=== PATIENT | female | born 1970 | race Caucasian/White ===

== ENCOUNTER 2021-08-06 18:30 | Inpatient (IN) | payer OTHER, SELFPAY ==
--- NOTE | ~2021-08-06 | XR_ITS ---
EXAMINATION: XR CHEST CLINICAL INFORMATION: Chest pain and shortness of breath COMPARISON: 03/10/2017 TECHNIQUE: Frontal view of the chest was obtained. FINDINGS: The lungs are well expanded. There is no focal consolidation, edema, or effusion. No pneumothorax. The cardiomediastinal silhouette is within normal limits. No acute osseous abnormality. XR/XR chest 1V IMPRESSION: Clear lungs.
--- NOTE | ~2021-08-06 | XR_ITS ---
EXAMINATION: XR FOREARM, RIGHT CLINICAL INFORMATION: Pain. Swelling. Injury. COMPARISON: None TECHNIQUE: AP and lateral views of the right forearm were obtained. FINDINGS: The bones and soft tissues are normal. No fracture. Imaged portions of the elbow and wrist are unremarkable. XR/XR forearm RT 2V IMPRESSION: Normal right forearm.
--- NOTE | ~2021-08-06 | XR_ITS ---
EXAMINATION: XR SHOULDER, RIGHT CLINICAL INFORMATION: Swelling. Injury. COMPARISON: None TECHNIQUE: Three views of the right shoulder. FINDINGS: The bones and soft tissues are normal. No fracture. Glenohumeral and acromioclavicular alignment is anatomic with normal joint space. No abnormal soft tissue calcifications. XR/XR shoulder RT min 2V IMPRESSION: Normal right shoulder.
[2021-08-06 18:32] VITALS: BP 108/85; PULSE 124; RESP 32; TEMP 37.2; O2SAT 97; BMI 32.3
--- NOTE | 2021-08-06 18:53 | ECG_ITS ---
Test Reason : sob Blood Pressure : / mmHG Vent. Rate : 104 BPM Atrial Rate : 104 BPM P-R Int : 174 ms QRS Dur : 084 ms QT Int : 346 ms P-R-T Axes : 035 022 033 degrees QTc Int : 454 ms Sinus tachycardia Otherwise normal ECG No previous ECGs available Referred By: Generic ED Physician Electronically Signed By:Nikko Smith
[2021-08-06 19:04] LABS: MANUAL DIFF FLAG NO
[2021-08-06 19:06] LABS: Basophils Absolute Auto 0.1 X10*3/uL (0.0-0.2); Basophils Percent Auto 0.9 % (0-2); Hematocrit 40.1 % (37.0-47.0); Hemoglobin 12.9 g/dl (12.0-16.0); Imm Gran Abs Auto 0.06 X10*3/uL (0.00-0.03); Imm Gran Pct Auto 0.5 % (0.0-0.4); Lymphocytes Absolute Auto 4.4 X10*3/uL (1.2-4.9); Lymphocytes Percent Auto 34.3 % (20-40); Mean Corpuscular HGB Conc 32.2 g/dl (31.0-35.0); Mean Corpuscular Hemoglobin 26.5 pg (27.0-33.0); Mean Corpuscular Volume 82.3 fL (80.0-98.0); Mean Platelet Volume 9.7 fL (9.4-12.3); Monocytes Percent Auto 7.8 % (2-11); Neutrophils Absolute Auto 7.3 x10*3/uL (2.0-8.3); Neutrophils Percent Auto 56.5 % (45-73); Platelet Count 466 X10*3/uL (160-400); Red Blood Count 4.87 X10*6/uL (4.20-5.50); Red Cell Distribution Width 15.4 % (11.0-16.0); White Blood Count 12.9 X10*3/uL (4.8-10.8)
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
[2021-08-06] MEDS: methylPREDNISolone Sod Succ 125 MG/2 ML VIAL IVPUSH (19:13)
[2021-08-06] MEDS: Magnesium Sulfate/H2O 2 GM/50 ML PIGGYBACK IV (19:13)
[2021-08-06 19:20] VITALS: PULSE 102; RESP 17; O2SAT 97
[2021-08-06] MEDS: Albuterol Sulfate (0.083%) 2.5 MG/3 ML VIAL.NEB 10 MG INHALE (19:20)
[2021-08-06 19:21] LABS: Anion Gap 15 (12-20); Blood Urea Nitrogen 10 mg/dL (9-16); Calcium 9.4 mg/dL (8.4-10.2); Carbon Dioxide 26 mmol/L (22-29); Chloride 99 mmol/L (96-108); Creatinine Clr Calc Pharmacy 90.8; Estimated Glomerular Filt Rate > 60; Glucose Random 83 mg/dL (60-115); Potassium 4.4 mmol/L (3.3-5.1); Sodium 136 mmol/L (135-145)
--- NOTE | 2021-08-06 19:21 | PC.NURSE ---
patient awake and alert. skin pink, warm, moist. resp even and labored. speaking in full, clear sentences. dry cough, tight lung sounds w/ exp wheezes. IV established and medicated as ordered. ST via monitor. RT at bedside for hour long tx.
[2021-08-06 19:26] LABS: B Type Natriuretic Peptide < 10 pg/mL (<100); Troponin-I High Sensitivity < 3.5 ng/L (<3.5-17.0)
[2021-08-06] MEDS: 0.9 % Sodium Chloride 1,000 ML 999 ML IV (19:32)
[2021-08-06] MEDS: Ketorolac Tromethamine 30 MG/ML VIAL IVPUSH (19:46)
[2021-08-06 19:53] LABS: COVID-19 Test Negative (Negative); IDNOW Serial# 55D5AD1C; Influenza A Negative (Negative); Influenza B2 Negative (Negative)
[2021-08-06 19:58] LABS: Alanine Aminotransferase 53 U/L (0-31); Albumin Level 4.2 g/dL (3.5-5.0); Alkaline Phosphatase 95 U/L (39-117); Aspartate Amino Transferase 53 U/L (5-31); Bilirubin Direct < 0.2 mg/dL (0.0-0.5); Bilirubin Total 0.2 mg/dL (0.0-1.0); Total Protein 8.1 g/dL (6.5-8.0)
[2021-08-06 20:52] LABS: Appearance Urine CLEAR; Color Urine STRAW; Glucose Urine UA NEG (NEG); Leukocyte Esterase Urine NEG (NEG); Nitrite Urine NEG (NEG); Specific Gravity - Urine <= 1.005 (1.005-1.025); UACC Culture Trigger NO; Urine Blood TRACE (NEG); Urine Ketones NEG (NEG); Urine Protein NEG (NEG-TRACE)
[2021-08-06 21:00] LABS: Bacteria Urine 1+ /LPF; Squamous Epithelial Cell Urine 1+ /LPF
[2021-08-06 21:01] LABS: RBC Urine 0-2 /HPF (0)
[2021-08-06 21:02] VITALS: O2SAT 95
[2021-08-06 21:06] VITALS: BP 126/77; PULSE 103; RESP 18; O2SAT 96
--- NOTE | 2021-08-06 21:09 | PHA.MEDREC ---
Pharmacy Consult ? Medication Reconciliation Pharmacy has completed the medication reconciliation.
[2021-08-06] MEDS: Albuterol/Iprat 2.5/0.5MG 3 ML AMPUL.NEB INHALE (21:10)
[2021-08-06 21:11] VITALS: PULSE 103; RESP 23; O2SAT 95
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
[2021-08-06 22:00] LABS: Prothrombin Time 11.3 SEC (9.9-13.0)
[2021-08-06 22:02] LABS: D Dimer High Sensitivity 162 NG/ML
[2021-08-06] MEDS: Montelukast Sodium 10 MG TABLET PO (22:41)
[2021-08-06] MEDS: Enoxaparin Sodium 40 MG/0.4 ML SYRINGE SUBCUT (22:44)
[2021-08-06] MEDS: 0.9 % Sodium Chloride 1,000 ML 75 ML IVCONT (23:01)
[2021-08-07] MEDS: methylPREDNISolone Sod Succ 40 MG/ML VIAL IVPUSH (01:01)
[2021-08-07] MEDS: Morphine Sulfate 4 MG/ML CARTRIDGE 1 MG IVPUSH (01:01)
[2021-08-07 05:51] VITALS: BP 119/98; PULSE 93; RESP 17; O2SAT 96
[2021-08-07 07:05] LABS: MANUAL DIFF FLAG NO
[2021-08-07 07:10] LABS: Basophils Percent Auto 0.3 % (0-2); Hematocrit 39.2 % (37.0-47.0); Hemoglobin 12.4 g/dl (12.0-16.0); Imm Gran Abs Auto 0.11 X10*3/uL (0.00-0.03); Imm Gran Pct Auto 0.9 % (0.0-0.4); Lymphocytes Absolute Auto 1.6 X10*3/uL (1.2-4.9); Lymphocytes Percent Auto 13.8 % (20-40); Mean Corpuscular HGB Conc 31.6 g/dl (31.0-35.0); Mean Corpuscular Hemoglobin 26.4 pg (27.0-33.0); Mean Corpuscular Volume 83.6 fL (80.0-98.0); Mean Platelet Volume 9.8 fL (9.4-12.3); Monocytes Absolute Auto 0.1 X10*3/uL (0.1-1.2); Monocytes Percent Auto 0.9 % (2-11); Neutrophils Absolute Auto 9.9 x10*3/uL (2.0-8.3); Neutrophils Percent Auto 84.1 % (45-73); Platelet Count 450 X10*3/uL (160-400); Red Blood Count 4.69 X10*6/uL (4.20-5.50); Red Cell Distribution Width 15.7 % (11.0-16.0); White Blood Count 11.8 X10*3/uL (4.8-10.8)
[2021-08-07 07:25] LABS: Anion Gap 12 (12-20); Blood Urea Nitrogen 15 mg/dL (9-16); Calcium 9.3 mg/dL (8.4-10.2); Carbon Dioxide 22 mmol/L (22-29); Chloride 106 mmol/L (96-108); Creatinine Clr Calc Pharmacy 100.2; Estimated Glomerular Filt Rate > 60; Glucose Random 165 mg/dL (60-115); Potassium 4.8 mmol/L (3.3-5.1); Sodium 135 mmol/L (135-145)
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
[2021-08-07 08:33] VITALS: BP 182/103; PULSE 83; RESP 16; TEMP 36.6
== END 2021-08-07 08:49 | disposition home or self-care (01) | DRG 141 ==
LOC: HO.ED 20:39 → HO.EDOVER 21:19
PROVIDERS: Nurse Practitioner Family; Admitting Provider Hospitalist; Emergency Provider Emergency Medicine; PCP Physician Assistant; Visit Provider Internal Medicine
DX: J45.901 Unspecified asthma with (acute) exacerbation (principal); R55 Syncope and collapse; Z79.52 Long term (current) use of systemic steroids; Z88.6 Allergy status to analgesic agent; Z91.013 Allergy to seafood; Z79.899 Other long term (current) drug therapy
CPT/HCPCS: 36415; 71045; 73030; 73090; 80048; 80076; 81001; 83880; 84484; 85025; 85379; 85610; 87502; 87635; 93005; 94640; 94644; 96365; 96366; 96375; 99219; 99284; 99285; J1650; J1885; J2270; J2920; J2930; J3475

== ENCOUNTER 2022-02-18 17:00 | Outpatient (RCR) | payer OTHER, SELFPAY | END 2022-04-06 15:21 | disposition home or self-care (01) | LOC: HO.PTCHIC 17:00 | PROVIDERS: PCP Physician Assistant; Visit Provider Physician Assistant | DX: M25.562 Pain in left knee (principal) | CPT/HCPCS: 97014; 97110; 97140; 97161 ==

== ENCOUNTER 2022-09-13 14:37 | Emergency (ER) | payer OTHER, SELFPAY ==
[2022-09-13 14:51] VITALS: BP 170/100; PULSE 115; O2SAT 97; BMI 25.8
[2022-09-13 15:00] VITALS: BP 132/74; PULSE 99; RESP 22; TEMP 37; O2SAT 94
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
[2022-09-13 17:57] VITALS: BP 107/58; PULSE 89; RESP 20; TEMP 36.9; O2SAT 97
== END 2022-09-13 18:21 | disposition home or self-care (01) ==
PROVIDERS: Emergency Provider Emergency Medicine Emergency Medical Services; PCP Internal Medicine
DX: S06.0X9A Concussion with loss of consciousness of unspecified duration, initial encounter (principal); S80.12XA Contusion of left lower leg, initial encounter; S00.83XA Contusion of other part of head, initial encounter; S20.212A Contusion of left front wall of thorax, initial encounter; V43.52XA Car driver injured in collision with other type car in traffic accident, initial encounter; Y93.89 Activity, other specified; Y92.414 Local residential or business street as the place of occurrence of the external cause; Y99.9 Unspecified external cause status
CPT/HCPCS: 36415; 70450; 71250; 72125; 73590; 80053; 83690; 84484; 85025; 85610; 85730; 93005; 96374; 96375; 96376; 99284; 99285; J2270; J2405

== ENCOUNTER 2022-09-28 12:24 | Outpatient (AMB) | payer OTHER, SELFPAY ==
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
[2022-09-28 13:23] VITALS: BP 120/84; PULSE 90; O2SAT 97
== END 2022-09-28 14:05 | disposition home or self-care (01) ==
PROVIDERS: PCP Internal Medicine; Visit Provider Physician Assistant
DX: M54.50 Low back pain, unspecified (principal)
CPT/HCPCS: 96372; 99214; J1885

== ENCOUNTER 2022-10-07 12:55 | Outpatient (AMB) | payer OTHER, SELFPAY ==
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
[2022-10-07 13:20] VITALS: BMI 25.8
== END 2022-10-07 14:40 | disposition home or self-care (01) ==
PROVIDERS: PCP Internal Medicine; Visit Provider Physician Assistant
DX: S82.142A Displaced bicondylar fracture of left tibia, initial encounter for closed fracture (principal)
CPT/HCPCS: 99204

== ENCOUNTER → 2022-10-07 12:55 | Outpatient (BNVA) | payer OTHER, SELFPAY | PROVIDERS: PCP Internal Medicine; Visit Provider Physician Assistant | DX: S82.142A Displaced bicondylar fracture of left tibia, initial encounter for closed fracture (principal); V43.52XA Car driver injured in collision with other type car in traffic accident, initial encounter; Y93.9 Activity, unspecified; Y92.9 Unspecified place or not applicable; Y99.9 Unspecified external cause status | CPT/HCPCS: 99202 ==

== ENCOUNTER 2022-10-27 07:43 | Outpatient (REF) | payer OTHER, SELFPAY ==
--- NOTE | ~2022-10-27 | CT_ITS ---
EXAMINATION: CT KNEE WITHOUT CONTRAST, LEFT CLINICAL INFORMATION: Tibial fracture. COMPARISON: Left tibia and fibular radiographs dated 09/13/2022. TECHNIQUE: Contiguous axial CT images of the left knee were obtained without contrast. Multiplanar reformats were provided and reviewed. This CT examination was performed using dose optimization techniques as appropriate, variously including the following: *Automated exposure control *Adjustment of mA and/or kV according to patient size (this includes techniques or standardized protocols for targeted exams where dose is matched to indication/reason for exam; i.e. extremities or head) *Use of iterative reconstruction technique. DOSE: 98 mGy-cm FINDINGS: Within the medial tibial plateau, there is a geographic area of central lucency with peripheral sclerosis measuring up to 2.3 x 3.9 x 4.9 cm (AP x ML x CC). This extends the articular surface. Findings could represent a chronic bone infarct versus large subchondral cyst. Along the articular surface component of the lesion, there is a depressed cortical fracture which measures 2.4 x 1.7 cm (AP x ML) with cortical depression measuring up to 0.3 cm. Medial compartment joint space narrowing. Medial and lateral compartment marginal osteophytes. Normal patellofemoral alignment. No significant joint effusion. No abnormal soft tissue mass or fluid collection. The visualized muscles and tendons are grossly intact. CT/CT knee LT wo IV con IMPRESSION: 1. Large geographic area of central lucency with peripheral sclerosis within the medial tibial plateau extending to the articular surface. Findings could represent a chronic bone infarct versus large subchondral cyst. There is a depressed cortical fracture along the articular surface component which measures 2.4 x 1.7 cm with cortical depression measuring up to 0.3 cm. 2. Mild medial and lateral compartment osteoarthritis.
== END 2022-10-27 07:44 | disposition home or self-care (01) ==
LOC: HO.CT 07:43
PROVIDERS: Visit Provider Physician Assistant
DX: S82.142A Displaced bicondylar fracture of left tibia, initial encounter for closed fracture (principal)
CPT/HCPCS: 73700

== ENCOUNTER 2022-11-18 14:53 | Outpatient (AMB) | payer OTHER, SELFPAY ==
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
== END 2022-11-18 15:43 | disposition home or self-care (01) ==
PROVIDERS: PCP Internal Medicine; Visit Provider Orthopaedic Surgery
DX: S82.142A Displaced bicondylar fracture of left tibia, initial encounter for closed fracture (principal); S80.12XA Contusion of left lower leg, initial encounter; M17.0 Bilateral primary osteoarthritis of knee; Z04.3 Encounter for examination and observation following other accident
CPT/HCPCS: 99214

== ENCOUNTER → 2022-11-18 14:53 | Outpatient (BNVA) | payer OTHER, SELFPAY | PROVIDERS: PCP Internal Medicine; Visit Provider Orthopaedic Surgery | DX: S82.142D Displaced bicondylar fracture of left tibia, subsequent encounter for closed fracture with routine healing (principal); S80.12XD Contusion of left lower leg, subsequent encounter; M17.12 Unilateral primary osteoarthritis, left knee; M17.11 Unilateral primary osteoarthritis, right knee | CPT/HCPCS: 99212 ==

== ENCOUNTER 2022-12-06 12:07 | Outpatient (REF) | payer OTHER, SELFPAY ==
--- NOTE | ~2022-12-06 | XR_ITS ---
STUDY: Left knee and standing knee INDICATION: Pain COMPARISON: 10/27/[address] TECHNIQUE: AP standing knee, 2 view left knee FINDINGS: Diffuse patchy demineralization. Moderate right medial knee joint narrowing. Moderate to severe left medial knee joint narrowing. Left patellofemoral joint is maintained. 5.2 cm centrally lucent, peripherally sclerotic tibial plateau process is identified with extension into the medial articular surface. Medial tibial plateau cortical step-off and mild depression identified. No suprapatellar effusion. XR/XR knee standing BI IMPRESSION: Redemonstration peripherally sclerotic, centrally lucent proximal left tibial process with medial tibial plateau depressed fracture. This does not appear significantly changed from 10/27/2022 CT at which time possibility of chronic bone infarct versus subchondral cyst were raised as differential diagnoses. Bilateral knee osteoarthritis.
--- NOTE | ~2022-12-06 | XR_ITS ---
STUDY: Left knee and standing knee INDICATION: Pain COMPARISON: 10/27/[address] TECHNIQUE: AP standing knee, 2 view left knee FINDINGS: Diffuse patchy demineralization. Moderate right medial knee joint narrowing. Moderate to severe left medial knee joint narrowing. Left patellofemoral joint is maintained. 5.2 cm centrally lucent, peripherally sclerotic tibial plateau process is identified with extension into the medial articular surface. Medial tibial plateau cortical step-off and mild depression identified. No suprapatellar effusion. XR/XR knee LT 2V IMPRESSION: Redemonstration peripherally sclerotic, centrally lucent proximal left tibial process with medial tibial plateau depressed fracture. This does not appear significantly changed from 10/27/2022 CT at which time possibility of chronic bone infarct versus subchondral cyst were raised as differential diagnoses. Bilateral knee osteoarthritis.
== END 2022-12-06 12:08 | disposition home or self-care (01) ==
LOC: HO.HOSX 12:07
PROVIDERS: Visit Provider Orthopaedic Surgery
DX: M17.0 Bilateral primary osteoarthritis of knee (principal); S82.142D Displaced bicondylar fracture of left tibia, subsequent encounter for closed fracture with routine healing; V89.2XXD Person injured in unspecified motor-vehicle accident, traffic, subsequent encounter; S80.12XD Contusion of left lower leg, subsequent encounter; Z79.899 Other long term (current) drug therapy
CPT/HCPCS: 73560; 73565; 99212

== ENCOUNTER 2022-12-06 14:51 | Outpatient (AMB) | payer OTHER, SELFPAY ==
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
== END 2022-12-06 15:48 | disposition home or self-care (01) ==
PROVIDERS: PCP Internal Medicine; Visit Provider Orthopaedic Surgery
DX: S82.142A Displaced bicondylar fracture of left tibia, initial encounter for closed fracture (principal); M17.0 Bilateral primary osteoarthritis of knee; S80.12XA Contusion of left lower leg, initial encounter
CPT/HCPCS: 99214

== ENCOUNTER → 2023-01-06 15:11 | Outpatient (BNVA) | payer OTHER, SELFPAY | PROVIDERS: PCP Internal Medicine; Visit Provider Orthopaedic Surgery ==

== ENCOUNTER 2023-01-13 10:48 | Outpatient (AMB) | payer MEDICAID, SELFPAY ==
[2023-01-13 10:56] VITALS: BMI 25.8
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
== END 2023-01-13 11:27 | disposition home or self-care (01) ==
PROVIDERS: PCP Internal Medicine; Visit Provider Physician Assistant
DX: M17.12 Unilateral primary osteoarthritis, left knee (principal); S82.142A Displaced bicondylar fracture of left tibia, initial encounter for closed fracture; S80.12XA Contusion of left lower leg, initial encounter
CPT/HCPCS: 99024

== ENCOUNTER → 2023-01-13 10:48 | Outpatient (BNVA) | payer SELFPAY | PROVIDERS: PCP Internal Medicine; Visit Provider Physician Assistant ==

== ENCOUNTER → 2023-01-25 06:03 | Outpatient (BNV) | payer OTHER, SELFPAY | PROVIDERS: Visit Provider Orthopaedic Surgery | DX: Z47.1 Aftercare following joint replacement surgery (principal); Z96.652 Presence of left artificial knee joint | CPT/HCPCS: 27447; 99024 ==

== ENCOUNTER 2023-01-27 09:59 | Inpatient (IN) | payer OTHER, SELFPAY ==
[2023-01-11 13:24] VITALS: BP 140/78; PULSE 90; RESP 20; O2SAT 97; BMI 33.4
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
--- NOTE | 2023-01-11 14:04 | ECG_ITS ---
Test Reason : preop Blood Pressure : / mmHG Vent. Rate : 086 BPM Atrial Rate : 086 BPM P-R Int : 150 ms QRS Dur : 086 ms QT Int : 378 ms P-R-T Axes : 021 016 036 degrees QTc Int : 452 ms Normal sinus rhythm Normal ECG When compared with ECG of 13-SEP-2022 15:55, Nonspecific T wave abnormality no longer evident in Inferior leads T wave inversion no longer evident in Anterior leads Referred By: Joy Berman Electronically Signed By:LILIAM CARDOZO MD
[2023-01-11 14:47] LABS: MANUAL DIFF FLAG NO
[2023-01-11 14:57] LABS: Basophils Absolute Auto 0.1 X10*3/uL (0.0-0.2); Basophils Percent Auto 0.6 % (0-2); Eosinophils Absolute Auto 0.4 X10*3/uL (0.0-0.4); Eosinophils Percent Auto 3.4 % (0-4); Hematocrit 42.6 % (37.0-47.0); Hemoglobin 13.7 g/dl (12.0-16.0); Imm Gran Abs Auto 0.06 X10*3/uL (0.00-0.03); Imm Gran Pct Auto 0.5 % (0.0-0.4); Lymphocytes Absolute Auto 2.9 X10*3/uL (1.2-4.9); Lymphocytes Percent Auto 23.2 % (20-40); Mean Corpuscular HGB Conc 32.2 g/dl (31.0-35.0); Mean Corpuscular Hemoglobin 27.8 pg (27.0-33.0); Mean Corpuscular Volume 86.4 fL (80.0-98.0); Mean Platelet Volume 9.9 fL (9.4-12.3); Monocytes Absolute Auto 0.7 X10*3/uL (0.1-1.2); Monocytes Percent Auto 5.8 % (2-11); Neutrophils Absolute Auto 8.4 x10*3/uL (2.0-8.3); Neutrophils Percent Auto 66.5 % (45-73); Platelet Count 360 X10*3/uL (160-400); Red Blood Count 4.93 X10*6/uL (4.20-5.50); Red Cell Distribution Width 13.9 % (11.0-16.0); White Blood Count 12.6 X10*3/uL (4.8-10.8)
[2023-01-11 15:40] LABS: Anion Gap 15 (12-20); Blood Urea Nitrogen 10 mg/dL (9-16); Carbon Dioxide 25 mmol/L (22-29); Chloride 103 mmol/L (96-108); Creatinine Clr Calc Pharmacy 101.7; Estimated Glomerular Filt Rate > 60; Glucose Random 107 mg/dL (60-115); Sodium 139 mmol/L (135-145)
[2023-01-11 16:00] LABS: MRSA Nasal PCR NEGATIVE (Negative); SA Nasal PCR NEGATIVE (Negative)
[2023-01-25] VITALS (17 sets, daily range): BP systolic 114–169; BP diastolic 56–99; PULSE 76–104; RESP 16–24; TEMP 36.2–36.9; O2SAT 94–98; BMI 34.9
[2023-01-25 06:51] LABS: Hematocrit 43.4 % (37.0-47.0); Hemoglobin 13.8 g/dl (12.0-16.0)
[2023-01-25] MEDS: Lactated Ringers 1,000 ML 100 ML IVCONT ×2 (07:04→12:47)
--- NOTE | 2023-01-25 07:23 | MHC.SHP ---
Pre-Procedural Eval Section A Date of Service: 01/25/23 The patient is an INPATIENT: No The History & Physical has been completed within 30 days and I have reviewed it.: Yes Section B Chief Complaint: Unilateral primary osteoarthritis, left knee Allergies: Allergies Allergy/AdvReac Type Severity Reaction Status Date / Time shellfish derived Allergy Severe Anaphylaxis Verified 01/13/23 10:58 [SHELLFISH DERIVED] celecoxib [From Celebrex] Allergy Intermediate Rash Verified 01/13/23 10:58 mold [MOLD] Allergy Intermediate asthma Verified 01/13/23 10:58 exacerbation pollen extracts [POLLEN] Allergy Intermediate asthma Verified 01/13/23 10:58 exacerbation naproxen Allergy Mild Rash Verified 01/25/23 06:19 TAPE,CLOTH AdvReac Mild RASH Uncoded 01/13/23 10:58 TAPE,PAPER AdvReac Mild RASH Uncoded 01/13/23 10:58 Plan I have reviewed the history and physical and performed a pertinent physical examination on my patient. No changes have occurred unless specified. Time Spent With Patient Time: Total time managing care of this patient today ____ minutes.
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
[2023-01-25] MEDS: HYDROmorphone HCl 0.5 MG/0.5 ML SYRINGE IVPUSH ×6 (10:05→23:17)
[2023-01-25] MEDS: ondansetron HCL 4 MG/2 ML VIAL IVPUSH (10:42)
[2023-01-25] MEDS: Acetaminophen 1,000 MG/100 ML PIGGYBACK 400 MG IV (10:48)
[2023-01-25] MEDS: Midazolam HCl/PF 2 MG/2 ML VIAL IVPUSH (10:50)
[2023-01-25] MEDS: oxyCODONE HCl Immed Release 5 MG TABLET PO (11:08)
--- NOTE | 2023-01-25 11:35 | PC.NURSE ---
aruond 1050 bladder scanned for 402ml's with feeling of needing to void. unable to void on bedpan. See straight cath'd for 650mls.
--- NOTE | 2023-01-25 12:33 | PHA.MEDREC ---
Pharmacy Consult ? Medication Reconciliation Pharmacy has reviewed the medication reconciliation.
[2023-01-25] MEDS: Loratadine 10 MG TABLET PO (12:48)
--- NOTE | 2023-01-25 13:22 | PC.NURSE ---
Addendum entered by Kathy Yanez RN 01/25/23 13:27: Medication currently on hold per Pharmacy. Original Note: Mei from Pharmacy contacted regarding Celecoxib order. Pt has listed allergy to medication. Per Mei, Pharmacy will be reaching out to MD.
[2023-01-25] MEDS: ceFAZolin Sodium/Dextrose,Iso 2 GM/50 ML PIGGYBACK IV (13:30)
--- NOTE | 2023-01-25 14:16 | PM.OP ---
Brief Operative Note Date of Service: 01/25/23 Pre-op diagnosis: left knee OA Post-op diagnosis: same Procedure: Left TKA Implants: [place] Triathlon posterior stabilized PS 2//ps/29a 12x50 tibial stem Surgeon: Kalpesh Carroll MD Anesthesia: regional and spinal Was an Mint Machine Operator used for this Procedure?: Yes Mint Machine Operator: Mack De La Rosa Estimated blood loss (mL): 150 Tourniquet time (min): 90 IV fluids (mL): 900 Pathology: other Condition: stable Disposition: PACU
[2023-01-25] MEDS: oxyCODONE HCl Immed Release 5 MG TABLET 10 MG PO ×2 (14:27→19:29)
[2023-01-25] MEDS: 0.9 % Sodium Chloride Flush 3 ML SYRINGE IVFLUSH (16:21)
[2023-01-25] MEDS: Acetaminophen 325 MG TABLET 650 MG PO (19:29)
[2023-01-25] MEDS: traZODone HCL 50 MG TABLET 150 MG PO (20:35)
[2023-01-25] MEDS: Montelukast Sodium 10 MG TABLET PO (20:35)
[2023-01-25] MEDS: Docusate Sodium 100 MG CAPSULE PO (20:36)
[2023-01-25] MEDS: oxyCODONE HCl ER 10 MG TAB.ER.12H PO (20:36)
[2023-01-25] MEDS: Fluticasone/Vilanterol 100/25 BLST.W.DEV 1 PUFF INHALE (21:03)
[2023-01-26] VITALS (9 sets, daily range): BP systolic 129–176; BP diastolic 69–98; PULSE 91–99; RESP 18; TEMP 36.2–36.9; O2SAT 94–97
[2023-01-26] MEDS: Acetaminophen 325 MG TABLET 650 MG PO (01:11)
[2023-01-26] MEDS: oxyCODONE HCl Immed Release 5 MG TABLET 10 MG PO ×2 (01:11→17:54)
[2023-01-26] MEDS: Lactated Ringers 1,000 ML 100 ML IVCONT ×2 (01:15→09:36)
[2023-01-26] MEDS: HYDROmorphone HCl 0.5 MG/0.5 ML SYRINGE IVPUSH ×2 (02:30→15:14)
[2023-01-26] MEDS: oxyCODONE HCl Immed Release 5 MG TABLET PO (03:51)
--- NOTE | 2023-01-26 03:53 | PC.NURSE ---
Pt in a lot of pain crying not due for pain med yet Joy Berman notified ordered oxycodone 5mg x 1 now and Iv tylenol q6hrs.
[2023-01-26] MEDS: Acetaminophen 1,000 MG/100 ML PIGGYBACK 400 MG IV ×3 (05:53→21:56)
[2023-01-26 06:38] LABS: MANUAL DIFF FLAG NO
[2023-01-26 06:44] LABS: Basophils Percent Auto 0.2 % (0-2); Hematocrit 34.2 % (37.0-47.0); Imm Gran Abs Auto 0.06 X10*3/uL (0.00-0.03); Imm Gran Pct Auto 0.4 % (0.0-0.4); Lymphocytes Absolute Auto 2.6 X10*3/uL (1.2-4.9); Mean Corpuscular HGB Conc 32.2 g/dl (31.0-35.0); Mean Corpuscular Hemoglobin 27.4 pg (27.0-33.0); Mean Corpuscular Volume 85.3 fL (80.0-98.0); Mean Platelet Volume 10.2 fL (9.4-12.3); Monocytes Percent Auto 6.9 % (2-11); Neutrophils Absolute Auto 10.7 x10*3/uL (2.0-8.3); Neutrophils Percent Auto 74.5 % (45-73); Platelet Count 348 X10*3/uL (160-400); Red Blood Count 4.01 X10*6/uL (4.20-5.50); Red Cell Distribution Width 14.2 % (11.0-16.0); White Blood Count 14.3 X10*3/uL (4.8-10.8)
[2023-01-26 06:56] LABS: Anion Gap 14 (12-20); Blood Urea Nitrogen 8 mg/dL (9-16); Calcium 8.6 mg/dL (8.4-10.2); Carbon Dioxide 27 mmol/L (22-29); Chloride 95 mmol/L (96-108); Creatinine Clr Calc Pharmacy 111.2; Estimated Glomerular Filt Rate > 60; Glucose Fasting 120 mg/dL (60-99); Sodium 132 mmol/L (135-145)
--- NOTE | 2023-01-26 08:04 | PM.PNORT ---
Subjective Subjective Date of Service: 01/26/23 Interval history: POD1 s/p LTKA Patient is resting in bed comfortably No overnight events Pain is managed No additional complaints Physical Exam Vital Signs: Vital Signs: Last Vital Signs Temp 97.9 F 01/26/23 03:44 Pulse 98 01/26/23 03:44 Resp 18 01/26/23 03:44 BP 129/69 01/26/23 03:44 Pulse Ox 95 01/26/23 03:44 O2 Del Method Room Air 01/26/23 03:44 O2 Flow Rate 3 01/25/23 11:50 BMI result Body Mass Index 34.9 Const: General: cooperative, healthy appearing and no acute distress Resp: Effort & Inspection: normal respiratory effort and able to speak in complete sentences Cardio: Rate: regular rate Peripheral pulses: Peripheral pulses 2+ throughout GI: Palpation (GI): Soft to palpation Skin: Lesions: no lesions Rashes: no rashes Extrem: Other: Left knee dressing is c/d/i. Able to dorsi/plantar flex. Calf is supple and nontender. Sensation intact. Pedal pulse intact. Procedures Date of Service Date of Service: 01/26/23 Progress Note: A&P Assessment and plan (1) Status post total knee replacement, left: Status: Acute Plan Continue pain mgmnt Begin ASA dvt ppx begin PT for LTKA Dispo planning-Pending PT eval, pain mgmnt Time Spent With Patient Time: Total time managing care of this patient today ____ minutes. Quality Stroke Does the patient have a stroke diagnosis?: No VTE Prior VTE?: No VTE Risk Level:: Medical - moderate - high VTE Device Contraindication: N/A - Device Ordered VTE Drug Contraindication: N/A - Med Ordered
[2023-01-26] MEDS: Fluticasone/Vilanterol 100/25 BLST.W.DEV 1 PUFF INHALE (08:05)
[2023-01-26] MEDS: Docusate Sodium 100 MG CAPSULE PO ×2 (09:32→20:10)
[2023-01-26] MEDS: FLUoxetine HCl 20 MG CAPSULE 60 MG PO (09:33)
[2023-01-26] MEDS: Aspirin 325 MG TABLET PO ×2 (09:33→20:11)
[2023-01-26] MEDS: Loratadine 10 MG TABLET PO (09:34)
[2023-01-26] MEDS: oxyCODONE HCl ER 10 MG TAB.ER.12H PO ×2 (09:34→20:10)
--- NOTE | 2023-01-26 10:39 | W.PM.OPN ---
Operative Note Operative Note Date of Service: 01/25/23 Narrative: Date of Service: 01/25/23 Pre-op diagnosis: left knee OA Post-op diagnosis: same Procedure: Left TKA Implants: [place] Triathlon posterior stabilized PS 2/3/9ps/29a 12x50 tibial stem Surgeon: Kalpesh Carroll MD Anesthesia: regional and spinal Was an First Aid Trainer used for this Procedure?: Yes First Aid Trainer: Mack De La Rosa Estimated blood loss (mL): 150 Tourniquet time (min): 90 IV fluids (mL): 900 Pathology: other Condition: stable Disposition: PACU Procedure in detail: The patient was brought to the operating room and prepped and draped in standard sterile fashion. A time-out was called to identify proper site proper procedure proper surgeon and IV antibiotics were administered. 1 g of IV tranexamic acid was administered. I began by making a midline incision to the retinaculum and performed a medial parapatellar arthrotomy. The patella was translated laterally and the knee was flexed up. The medial compartment was abnormally sclerotic. I performed a small medial peel and resected the infrapatellar fat pad. Gaston's line was then used to drill my intramedullary femoral guide and my distal femur cut of 10 mm was made in 5 degrees of valgus while protecting the soft tissues. I then measured a # 2 femur and placed my cutting guide and made my anterior posterior and chamfer cuts protecting the soft tissues at all times. I then made my box, removing the PCL. Once I was satisfied with my cuts I turned my attention to the tibia. I made my distal tibial cut in 0 deg slope of while protecting the posterior soft tissues at all times. I used an angled curette to penetrate the medial plateau sclerotic bone and removed the abundant fibrous tissue in the medial metaphysis. Once this was removed there was a large cyst occupying the entire medial metaphysis. I used a currette to remove the sclerotic bone along the medial cortex and down to healthy appearing bone laterally. I removed the meniscus medially and laterally and , using an external cutting guide, in line with the tibial crest and the third ray, An extension block was used to confirm appropriate amount of bony resection. I then sized a #3 tibia and once I was satisfied that there was complete tibial coverage I placed my trial and with the trial femur in place took the knee through range of motion. I was satisfied with the extension and flexion as well as the stability at 0, 30 and 90 degrees. I did not feel, givben her age and the integrity of the cortex that a cone was required. I removed the bone from the femoral cuts and rongeured this down to small fragments. THis was enough to fill the metaphysis. I then turned my attention to the patella where I removed 1 cm from the undersurface of the patella and then trialed a 29a patellar button. Again the knee was taken through range of motion I was satisfied with the tracking. I then returned to the femur and drilled my femoral lug holes and prepared the tibia. A femoral bone plug was placed and the knee was irrigated copiously. 2 bags of palacos bone cement was mixed on the back table. I filled the metadiaphysis with cement and then jason grafter the medial empty space up to the joint. I then cemented the patella, tibia and femur in standard fashion. A 12x50 tibial stem was used. I trialed different inserts until I selected a #9 insert. The final insert was placed and a 3 minutes iodine soak with local TXA was performed. The knee was then closed with a running Quill suture, a 3 0 Vicryl and reshma on the skin. Patient was then placed in sterile dressing and brought to recovery room in stable condition there were no known complications.
--- NOTE | 2023-01-26 12:04 | MHC.CM.PN ---
pt lives alone normally but her mom will coming to sat with her when dcd pt receommended home with serviers referral to ns
[2023-01-26] MEDS: hydrOXYzine HCL 50 MG TABLET PO (15:15)
[2023-01-26] MEDS: 0.9 % Sodium Chloride Flush 3 ML SYRINGE IVFLUSH ×2 (15:20→20:13)
[2023-01-26] MEDS: Montelukast Sodium 10 MG TABLET PO (20:10)
[2023-01-26] MEDS: traZODone HCL 50 MG TABLET 150 MG PO (20:10)
[2023-01-27] VITALS (9 sets, daily range): BP systolic 153–178; BP diastolic 77–90; PULSE 89–111; RESP 16–18; TEMP 36.1–36.9; O2SAT 93–98
--- NOTE | ~2023-01-27 | XR_ITS ---
EXAMINATION: XR KNEE, LEFT CLINICAL INFORMATION: Left total knee arthroplasty COMPARISON: None available. TECHNIQUE: Frontal and lateral portable postoperative views of the left knee. FINDINGS: There is a left total knee replacement with patellar resurfacing in anatomic alignment and position. Soft tissue air and skin reshma are present. XR/XR knee LT 2V IMPRESSION: Left total knee arthroplasty in anatomic alignment and position.
[2023-01-27] MEDS: HYDROmorphone HCl 0.5 MG/0.5 ML SYRINGE IVPUSH ×6 (03:04→22:55)
[2023-01-27] MEDS: Acetaminophen 1,000 MG/100 ML PIGGYBACK 400 MG IV (03:08)
[2023-01-27 06:06] LABS: MANUAL DIFF FLAG NO
[2023-01-27 06:16] LABS: Basophils Absolute Auto 0.1 X10*3/uL (0.0-0.2); Basophils Percent Auto 0.5 % (0-2); Hematocrit 34.4 % (37.0-47.0); Hemoglobin 10.8 g/dl (12.0-16.0); Imm Gran Abs Auto 0.06 X10*3/uL (0.00-0.03); Imm Gran Pct Auto 0.5 % (0.0-0.4); Mean Corpuscular HGB Conc 31.4 g/dl (31.0-35.0); Mean Corpuscular Hemoglobin 27.8 pg (27.0-33.0); Mean Corpuscular Volume 88.4 fL (80.0-98.0); Mean Platelet Volume 10.3 fL (9.4-12.3); Monocytes Absolute Auto 0.9 X10*3/uL (0.1-1.2); Monocytes Percent Auto 7.7 % (2-11); Neutrophils Absolute Auto 8.7 x10*3/uL (2.0-8.3); Neutrophils Percent Auto 74.3 % (45-73); Platelet Count 294 X10*3/uL (160-400); Red Blood Count 3.89 X10*6/uL (4.20-5.50); Red Cell Distribution Width 14.3 % (11.0-16.0); White Blood Count 11.7 X10*3/uL (4.8-10.8)
[2023-01-27 06:28] LABS: Anion Gap 11 (12-20); Blood Urea Nitrogen 8 mg/dL (9-16); Calcium 8.7 mg/dL (8.4-10.2); Carbon Dioxide 31 mmol/L (22-29); Chloride 102 mmol/L (96-108); Creatinine Clr Calc Pharmacy 121.3; Estimated Glomerular Filt Rate > 60; Glucose Fasting 119 mg/dL (60-99); Potassium 3.8 mmol/L (3.3-5.1); Sodium 140 mmol/L (135-145)
--- NOTE | 2023-01-27 06:44 | HO.POSTANES ---
Post Anesthesia Evaluation Post Anesthesia Evaluation Date of Service: 01/27/23 Vital Signs: Vital Signs Temp Pulse Resp BP Pulse Ox O2 Del Method 01/27/23 03:31 97 F 89 18 157/78 H 98 Room Air 01/26/23 19:44 97.1 F 99 18 142/83 H 94 Room Air Anesthesia: Spinal and Nerve Block Mental Status: Awake Pain Control: Satisfactory Nausea/Vomiting: None Hydration: Adequate Anesthesia-Related Issues: No Anes. Related Issues
[2023-01-27] MEDS: 0.9 % Sodium Chloride Flush 3 ML SYRINGE IVFLUSH ×2 (08:14→20:17)
[2023-01-27] MEDS: FLUoxetine HCl 20 MG CAPSULE 60 MG PO (08:16)
[2023-01-27] MEDS: Aspirin 325 MG TABLET PO ×2 (08:16→20:15)
[2023-01-27] MEDS: Loratadine 10 MG TABLET PO (08:16)
[2023-01-27] MEDS: oxyCODONE HCl ER 10 MG TAB.ER.12H PO ×2 (08:16→20:14)
[2023-01-27] MEDS: Fluticasone/Vilanterol 100/25 BLST.W.DEV 1 PUFF INHALE (08:29)
--- NOTE | 2023-01-27 08:43 | PM.PNORT ---
Subjective Subjective Date of Service: 01/27/23 Interval history: POD2 s/p LTKA Patient is resting in bed comfortably No overnight events Pain is managed No additional complaints Physical Exam Vital Signs: Vital Signs: Last Vital Signs Temp 97.4 F 01/27/23 07:42 Pulse 111 H 01/27/23 08:30 Resp 16 01/27/23 08:30 BP 171/89 H 01/27/23 07:42 Pulse Ox 96 01/27/23 07:42 O2 Del Method Room Air 01/27/23 07:42 O2 Flow Rate 3 01/25/23 11:50 BMI result Body Mass Index 34.9 Const: General: cooperative, healthy appearing and no acute distress Resp: Effort & Inspection: normal respiratory effort and able to speak in complete sentences Cardio: Rate: regular rate Peripheral pulses: Peripheral pulses 2+ throughout GI: Palpation (GI): Soft to palpation Skin: Lesions: no lesions Rashes: no rashes Extrem: Other: Left knee dressing is c/d/i. Able to dorsi/plantar flex. Calf is supple and nontender. Sensation intact. Pedal pulse intact. Procedures Date of Service Date of Service: 01/27/23 Progress Note: A&P Assessment and plan (1) Status post total knee replacement, left: Status: Acute Plan Continue pain mgmnt Continue ASA dvt ppx Continue PT for LTKA Dispo planning-Pending PT eval, pain mgmnt Continued in patient stay for pain managment and additional physical therapy for safe transition home Time Spent With Patient Time: Total time managing care of this patient today ____ minutes. Quality Stroke Does the patient have a stroke diagnosis?: No VTE Prior VTE?: No VTE Risk Level:: Medical - moderate - high VTE Device Contraindication: N/A - Device Ordered VTE Drug Contraindication: N/A - Med Ordered
[2023-01-27] MEDS: oxyCODONE HCl Immed Release 5 MG TABLET 10 MG PO (14:58)
[2023-01-27] MEDS: Montelukast Sodium 10 MG TABLET PO (20:14)
[2023-01-27] MEDS: Docusate Sodium 100 MG CAPSULE PO (20:14)
[2023-01-27] MEDS: traZODone HCL 50 MG TABLET 150 MG PO (20:14)
[2023-01-28] MEDS: oxyCODONE HCl Immed Release 5 MG TABLET 10 MG PO ×2 (00:55→07:16)
[2023-01-28 04:00] VITALS: BP 146/70; PULSE 97; RESP 16; TEMP 36.5; O2SAT 97
[2023-01-28] MEDS: HYDROmorphone HCl 0.5 MG/0.5 ML SYRINGE IVPUSH (04:36)
[2023-01-28 06:21] LABS: MANUAL DIFF FLAG NO
[2023-01-28 06:28] LABS: Basophils Absolute Auto 0.1 X10*3/uL (0.0-0.2); Basophils Percent Auto 0.5 % (0-2); Hemoglobin 10.4 g/dl (12.0-16.0); Imm Gran Abs Auto 0.09 X10*3/uL (0.00-0.03); Imm Gran Pct Auto 0.7 % (0.0-0.4); Lymphocytes Percent Auto 15.9 % (20-40); Mean Corpuscular HGB Conc 31.5 g/dl (31.0-35.0); Mean Corpuscular Hemoglobin 27.5 pg (27.0-33.0); Mean Corpuscular Volume 87.3 fL (80.0-98.0); Mean Platelet Volume 10.1 fL (9.4-12.3); Monocytes Absolute Auto 0.9 X10*3/uL (0.1-1.2); Monocytes Percent Auto 7.2 % (2-11); Neutrophils Absolute Auto 9.3 x10*3/uL (2.0-8.3); Neutrophils Percent Auto 75.7 % (45-73); Platelet Count 304 X10*3/uL (160-400); Red Blood Count 3.78 X10*6/uL (4.20-5.50); Red Cell Distribution Width 14.6 % (11.0-16.0); White Blood Count 12.3 X10*3/uL (4.8-10.8)
[2023-01-28 06:43] LABS: Anion Gap 12 (12-20); Blood Urea Nitrogen 10 mg/dL (9-16); Calcium 8.8 mg/dL (8.4-10.2); Carbon Dioxide 31 mmol/L (22-29); Chloride 99 mmol/L (96-108); Creatinine Clr Calc Pharmacy 123.2; Estimated Glomerular Filt Rate > 60; Glucose Fasting 120 mg/dL (60-99); Potassium 3.7 mmol/L (3.3-5.1); Sodium 138 mmol/L (135-145)
[2023-01-28] MEDS: 0.9 % Sodium Chloride Flush 3 ML SYRINGE IVFLUSH (07:15)
[2023-01-28] MEDS: FLUoxetine HCl 20 MG CAPSULE 60 MG PO (07:15)
[2023-01-28] MEDS: Loratadine 10 MG TABLET PO (07:15)
[2023-01-28] MEDS: Aspirin 325 MG TABLET PO (07:16)
[2023-01-28 07:39] VITALS: PULSE 101; RESP 16; O2SAT 97
[2023-01-28] MEDS: Fluticasone/Vilanterol 100/25 BLST.W.DEV 1 PUFF INHALE (07:39)
[2023-01-28 08:00] VITALS: BP 141/79; PULSE 100; RESP 18; TEMP 36.1; O2SAT 95
[2023-01-28 08:44] VITALS: BP 141/79; PULSE 100; O2SAT 95
--- NOTE | 2023-01-28 09:10 | PM.DS ---
DS: Providers Provider Date of Service: 01/28/23 Date of admission: 01/27/23 09:59 Primary care physician: Becky Contreras MD DS: Diagnosis Discharge Diagnosis (1) Status post total knee replacement, left: Status: Acute DS: Summary Hospital Course Hospital Course: The patient underwent a successful left total knee arthroplasty on 01/25/23, was transferred to PACU and then to the floor to recover. During their stay, their vitals were stable, afebrile at 97.0. Labs were unremarkable, H/H 10.4/33.0. POD 1 he was started on ASA 325mg tabs post bid for DVT ppx, they also received Physical Therapy services twice a day. Physical therapy should include gait training, ROM to tolerance and quad strength. She is WBAT. Prior to discharge, his dressing was changed, incision clean dry and intact, new Aquacel dressing applied. The Aquacel dressing should remain intact and dry at all times. Any concerns with the dressing, please contact orthopedic office. No showering. The plan is to be discharged home with VNA Time Attestation Discharge coordination time: Less than 30 minutes Quality: Safe Use of Opioids Does Pt have an Active Cancer Diagnosis on the Problem List?: No Quality: Stroke Does the patient have a stroke diagnosis?: No Physical Exam Vital Signs: Vital Signs: Last Vital Signs Temp 97 F 01/28/23 08:00 Pulse 100 01/28/23 08:44 Resp 18 01/28/23 08:00 BP 141/79 H 01/28/23 08:44 Pulse Ox 95 01/28/23 08:44 O2 Del Method Room Air 01/28/23 08:00 O2 Flow Rate 3 01/25/23 11:50 BMI result Body Mass Index 34.9 DS: Data Data Completed and Pending Completed studies during hospitalization [Text1]: Pending at discharge 01/25/23 09:38 Surgical [PTH] Routine Labs on day of discharge: Laboratory Results - last 24 hr 01/28/23 05:55 WBC 12.3 H RBC 3.78 L Hgb 10.4 L Hct 33.0 L MCV 87.3 MCH 27.5 MCHC 31.5 RDW 14.6 Plt Count 304 MPV 10.1 Immature Gran % (Auto) 0.7 H Neut % (Auto) 75.7 H Lymph % (Auto) 15.9 L [place] % (Auto) 7.2 Eos % (Auto) 0.0 Baso % (Auto) 0.5 Lymph # (Auto) 2.0 [place] # (Auto) 0.9 Eos # (Auto) 0.0 Baso # (Auto) 0.1 Abs Immat Gran (auto) 0.09 H Absolute Neuts (auto) 9.3 H Absolute Nucleated RBC 0.000 Nucleated RBC % (auto) 0.0 Sodium 138 Potassium 3.7 Chloride 99 Carbon Dioxide 31 H Anion Gap 12 BUN 10 Creatinine 0.65 Estim Creat Clear Calc 123.2 Estimated GFR > 60 Fasting Glucose 120 H Calcium 8.8 Discharge Plan Discharge Anticipated Discharge Date/Time: 01/28/23 09:06 Patient Disposition: Home Health Service Discharge Diagnosis: s/p lt tka Referrals: Joy Berman PA-C [Physician Resident Surgeon] - 2 Weeks (02/10/23 1:45 [facility] [place] [facility] Joy Berman PA-C[place] Discharge Medications: New docusate sodium 100 mg Capsule 100 mg PO BID 7 Days Qty: 14 0RF oxycodone 10 mg tablet 10 mg PO Q4H PRN (Reason: Pain, Moderate(Pain Scale 4-6)) 7 Days Qty: 42 0RF Rx Instructions: Partial Fill upon patient request. acetaminophen 325 mg Tablet 650 mg PO Q6H PRN (Reason: Pain, Mild (Pain Scale 1-3)) 30 Days Qty: 240 0RF aspirin 325 mg Tablet 325 mg PO BID 42 Days Qty: 84 0RF [place] [facility] [place] .ROUTE .MEDSUPPLY Qty: 1 0RF Rx Instructions: Lisa ybarra fluticasone propion-salmeterol [Advair Diskus] 250-50 mcg/dose blister with device 1 puff PO BID trazodone 100 mg tablet 1.5 tab PO BEDTIME montelukast 10 mg tablet 1 tab PO QPM fluoxetine 20 mg capsule 3 cap PO QAM albuterol sulfate 2.5 mg /3 mL (0.083 %) solution for nebulization 1 vial inhalation Q4H PRN (Reason: wheezing) albuterol sulfate 90 mcg/actuation HFA aerosol inhaler 2 puff inhalation Q6H PRN (Reason: wheezing) cetirizine [Zyrtec] 10 mg Tablet 10 mg PO QAM amlodipine 5 mg tablet 5 mg PO QAM hydroxyzine pamoate 25 mg capsule 50 mg PO BID PRN (Reason: Anxiety) Discharge Orders: Discharge Order (Routine); Ordered 01/28/23 Ordered By: Mack De La Rosa Diet: Regular diet Activity on Discharge: Use cane or walker Stand Alone Forms: Patient Portal Discharge page Care Plan Goals: Restore function of joint Health Concerns: none Plan of Treatment: Physical Therapy Pain management DVT prophylaxis Assessment: Physical Therapy for Total knee arthroplasty: WBAT, gait training, ROM 0-12, quad strength Limit stair climbing No showering, no tub bath-keep dressing clean, dry and intact No driving x6 weeks Continue Aspirin twice a day x 6 weeks Follow up with [facility] [place] [facility] [place] 2 weeks: 02/10/23 13:45 [facility] [place] [facility] SurgeonsJoy Berman PA-C --you will also have your first out patient PT eval on the day of your post op appt-so please plan on being in the office that day for an extended period of time.
[2023-01-28 10:04] VITALS: O2SAT 97
== END 2023-01-28 11:28 | disposition home health service (06) | DRG 326 ==
LOC: HO.SSS 09:59 → HO.S3 09:59
PROVIDERS: Physician Assistant; Admitting Provider Physician Assistant; PCP Internal Medicine; Visit Provider Orthopaedic Surgery
PROC: (CPT 27447; principal; 2023-01-25 07:30)
DX: M17.12 Unilateral primary osteoarthritis, left knee (principal); F43.10 Post-traumatic stress disorder, unspecified; G89.18 Other acute postprocedural pain; Z79.51 Long term (current) use of inhaled steroids; Z79.899 Other long term (current) drug therapy
CPT/HCPCS: 36415; 73560; 80048; 85014; 85018; 85025; 86850; 86900; 86901; 87640; 87641; 88305; 88311; 90686; 93005; 94640; 97110; 97116; 97162; 97530; C1713; C1776; J0131; J0665; J0690; J1100; J1170; J2250; J2405; J2550; J2704; J3010; J7120

== ENCOUNTER 2023-02-10 13:29 | Outpatient (AMB) | payer OTHER, SELFPAY ==
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
== END 2023-02-10 14:12 | disposition home or self-care (01) ==
PROVIDERS: PCP Internal Medicine; Visit Provider Physician Assistant
DX: S82.142A Displaced bicondylar fracture of left tibia, initial encounter for closed fracture (principal); M17.12 Unilateral primary osteoarthritis, left knee; S80.12XA Contusion of left lower leg, initial encounter
CPT/HCPCS: 99024

== ENCOUNTER → 2023-02-10 13:29 | Outpatient (BNVA) | payer OTHER, SELFPAY | PROVIDERS: PCP Internal Medicine; Visit Provider Physician Assistant ==

== ENCOUNTER 2023-03-04 09:00 | Outpatient (RCR) | payer OTHER, SELFPAY ==
--- NOTE | 2023-02-10 15:11 | MHC.PT.EP ---
[facility] [place] Office [place] Office [place] Office [address] [phone] F: [phone] F: [phone] F: [phone] F: [phone] Physical Therapy Plan of Care Date of Evaluation: 02/10/23 Date of Surgery: 01/25/23 Diagnosis: S/P LEFT TKA Assessment: 52 YO FEMALE REF TO PT S/P LEFT TKA ON 01/25/[address] LIM. SHE RESIDES ALONE IN A FIRST FLOOR APT AND IS CURRENTLY AMB W A ROLLATOR. OBJECTIVE FINDINGS: PO ROM DEFICITS LEFT KNEE, TIGHT HIP FLEXORS/ CALF MM, (+) STRENGTH DEFICITS, AND SHE NOTES SIGNIF PAIN IN HER LEFT KNEE (10/10, TEARFULLY). FUNCTIONALLY, THE Pt IS LIMITED WITH DECR STANDING TERRIE, ALTERED GAIT MECHANICS, DIFFIC W STAIR MGMT, AND RESTRICTED WITH MORE PHYSICALLY DEMANDING ADLs. Pt WOULD BENEFIT FROM PT AT THIS TIME TO GUIDE HER IN HER POST-OP COURSE, DEV A PROGR HEP, ADDRESS PAIN MGMT, AND OBTAINING MAXIMAL LEVEL OF FUNCTIONAL INDEPENDENCE, WITH HER GOAL OF RTW A TEACHER. Frequency and Duration: The patient will be seen 2 x WK x 8 WKS Short Term Goals: *DECREASE LEFT KNEE PAIN TO 2-3/10 *THE Pt DEMON APPROP QUAD ACTIV *IMPROVE AROM Lt KNEE 0* TO 120* *THE Pt DEMON MORE EFFICIENT GAIT MECH ON LEVEL GROUND AND STAIRS Fabric Sourcer Goals: *Pt WILL IMPROVE LUMBOPELVIC/ Lt LE STRENGTH TO AT LEAST 5-/5 *Pt RESUME AT LEAST PLOF EVIDENT W IMPROVED LEFI SCORE *Pt INDEP W PROGRESSIVE HEP AND SELF-SX MGMT TECHN *THE Pt DEMON Lt LE SLS x 10 SEC Treatment Plan: Modalities to reduce pain, spasms and effusion. Manual therapy to restore motion and function. Therapeutic exercise to improve strength and flexibility. Neuromuscular re-education for posture and balance. Therapeutic activities to return to functional activities of daily living. Electronically signed by: TALI FIGUEROA,PT Please sign and return to therapist. Thank you for your referral.
--- NOTE | 2023-03-28 13:10 | MHC.PT.DC ---
[facility] [place] Office [place] Office [place] Office [address]ia Hay[address] [phone] F: [phone] F: [phone] F: [phone] F: [phone] Physical Therapy Discharge Report Diagnosis: S/P LEFT TKA Date of Surgery: 01/25/23 Date of Evaluation: 02/10/23 Date of Discharge: 03/28/23 Treatments to Date: 7 Cancellations to Date: 0 No Shows to Date: 0 Discharge Status: Visit Non-compliance Discharge Summary: Patient with poor compliance with appointments and facility policy. DC to HEP. Electronically signed by: Eunice Higuera PT Please sign and return to therapist. Thank you for your referral.
== END 2023-03-28 13:10 | disposition home or self-care (01) ==
LOC: HO.PTCHIC 09:00
PROVIDERS: PCP Internal Medicine; Visit Provider Physician Assistant
DX: Z96.652 Presence of left artificial knee joint (principal)
CPT/HCPCS: 97110; 97140; 97162; 97530

== ENCOUNTER 2023-03-17 13:03 | Outpatient (AMB) | payer OTHER, SELFPAY ==
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
== END 2023-03-17 14:09 | disposition home or self-care (01) ==
LOC: HO.HOS 13:03
PROVIDERS: PCP Internal Medicine; Visit Provider Orthopaedic Surgery
DX: Z96.652 Presence of left artificial knee joint (principal)
CPT/HCPCS: 99024

== ENCOUNTER → 2023-03-17 13:03 | Outpatient (BNVA) | payer OTHER, SELFPAY | PROVIDERS: PCP Internal Medicine; Visit Provider Orthopaedic Surgery | DX: Z47.1 Aftercare following joint replacement surgery (principal); Z96.652 Presence of left artificial knee joint | CPT/HCPCS: 99212 ==

== ENCOUNTER 2023-05-23 10:36 | Outpatient (AMB) | payer OTHER, SELFPAY ==
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
== END 2023-05-23 10:53 | disposition home or self-care (01) ==
PROVIDERS: PCP Internal Medicine; Visit Provider Orthopaedic Surgery
DX: Z47.1 Aftercare following joint replacement surgery (principal); Z96.652 Presence of left artificial knee joint
CPT/HCPCS: 99213

== ENCOUNTER → 2023-05-23 10:36 | Outpatient (BNVA) | payer OTHER, SELFPAY | PROVIDERS: PCP Internal Medicine; Visit Provider Orthopaedic Surgery | DX: Z96.652 Presence of left artificial knee joint (principal) | CPT/HCPCS: 99212 ==

== ENCOUNTER 2023-06-02 11:03 | Outpatient (REF) | payer OTHER, SELFPAY ==
--- NOTE | ~2023-06-02 | XR_ITS ---
EXAMINATION: XR KNEE, LEFT CLINICAL INFORMATION: Pain in unspecified knee. COMPARISON: 01/25/2023 TECHNIQUE: AP standing view of bilateral knees. 3 views of the left knee. FINDINGS: Right Knee: Diffuse patchy demineralization. Moderate narrowing of the medial compartment. Left Knee: Status post left knee total arthroplasty with patellar resurfacing as noted on 01/25/2023. Hardware appears intact. Alignment is stable. Decreased suprapatellar effusion and prepatellar soft tissue swelling. XR/XR knee LT 3V IMPRESSION: Status post left knee total arthroplasty with patellar resurfacing as noted on 01/25/2023. Hardware appears intact. Alignment is stable. Decreased suprapatellar effusion and prepatellar soft tissue swelling.
== END 2023-06-02 11:04 | disposition home or self-care (01) ==
LOC: HO.HOSX 11:03
PROVIDERS: PCP Internal Medicine; Visit Provider Orthopaedic Surgery
DX: M25.562 Pain in left knee (principal); Z96.652 Presence of left artificial knee joint; Z91.81 History of falling
CPT/HCPCS: 73562; 99212

== ENCOUNTER 2023-06-02 11:03 | Outpatient (AMB) | payer OTHER, SELFPAY ==
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
[2023-06-02 11:51] VITALS: BMI 32.3
== END 2023-06-02 12:17 | disposition home or self-care (01) ==
PROVIDERS: PCP Internal Medicine; Visit Provider Orthopaedic Surgery
DX: Z47.1 Aftercare following joint replacement surgery (principal); Z96.652 Presence of left artificial knee joint
CPT/HCPCS: 99213

== ENCOUNTER 2023-06-28 11:55 | Outpatient (REF) | payer OTHER, SELFPAY ==
[2023-06-28 13:34] LABS: MANUAL DIFF FLAG NO
[2023-06-28 14:03] LABS: Basophils Absolute Auto 0.1 X10*3/uL (0.0-0.2); Basophils Percent Auto 1.2 % (0-2); Eosinophils Absolute Auto 0.4 X10*3/uL (0.0-0.4); Eosinophils Percent Auto 3.7 % (0-4); Hematocrit 43.7 % (37.0-47.0); Hemoglobin 14.4 g/dl (12.0-16.0); Imm Gran Abs Auto 0.03 X10*3/uL (0.00-0.03); Imm Gran Pct Auto 0.3 % (0.0-0.4); Lymphocytes Absolute Auto 3.4 X10*3/uL (1.2-4.9); Mean Corpuscular Hemoglobin 28.2 pg (27.0-33.0); Mean Corpuscular Volume 85.7 fL (80.0-98.0); Mean Platelet Volume 10.1 fL (9.4-12.3); Monocytes Absolute Auto 0.7 X10*3/uL (0.1-1.2); Monocytes Percent Auto 7.1 % (2-11); Neutrophils Absolute Auto 4.9 x10*3/uL (2.0-8.3); Neutrophils Percent Auto 51.7 % (45-73); Platelet Count 513 X10*3/uL (160-400); Red Cell Distribution Width 14.8 % (11.0-16.0); White Blood Count 9.5 X10*3/uL (4.8-10.8)
[2023-06-28 18:11] LABS: Alanine Aminotransferase 46 U/L (0-31); Albumin Level 4.3 g/dL (3.5-5.0); Alkaline Phosphatase 109 U/L (39-117); Anion Gap 15 (12-20); Aspartate Amino Transferase 54 U/L (5-31); Bilirubin Total 0.3 mg/dL (0.0-1.0); Blood Urea Nitrogen 12 mg/dL (9-16); Carbon Dioxide 24 mmol/L (22-29); Chloride 102 mmol/L (96-108); Cholesterol 285 mg/dL (<200); Estimated Glomerular Filt Rate > 60; Glucose Random 104 mg/dL (60-115); HDL Cholesterol 50 mg/dL (>40); Potassium 4.2 mmol/L (3.3-5.1); Sodium 137 mmol/L (135-145); Thyroid Stimulating Hormone 1.13 uIU/mL (0.32-4.0); Total Protein 8.4 g/dL (6.5-8.0); Triglycerides 492 mg/dL (<150)
== END 2023-06-28 11:56 | disposition home or self-care (01) ==
LOC: HO.10HDL 11:55
PROVIDERS: Visit Provider Internal Medicine
DX: Z00.00 Encounter for general adult medical examination without abnormal findings (principal); E66.9 Obesity, unspecified; F43.12 Post-traumatic stress disorder, chronic; I10 Essential (primary) hypertension; J45.909 Unspecified asthma, uncomplicated; M17.0 Bilateral primary osteoarthritis of knee
CPT/HCPCS: 36415; 80053; 80061; 84443; 85025

== ENCOUNTER 2023-07-25 08:53 | Outpatient (REF) | payer OTHER, SELFPAY ==
--- NOTE | ~2023-07-25 | XR_ITS ---
EXAMINATION: XR KNEE, LEFT CLINICAL INFORMATION: Pain in unspecified knee. COMPARISON: 01/25/2023 left knee, 06/02/2023 bilateral knees. TECHNIQUE: AP standing view of bilateral knees as well as lateral and sunrise views of the left knee. FINDINGS: LEFT KNEE: Moderate joint effusion. Status post left total knee arthroplasty. Hardware appears intact. Alignment is stable. There appears to be some demineralization particularly along the lateral aspect of the knee adjacent to the prosthesis, possibly accentuated by differences in technique. RIGHT KNEE: Moderate narrowing of the medial compartment. Diffuse, patchy demineralization. XR/XR knee LT 3V IMPRESSION: Status post left knee total arthroplasty with patellar resurfacing as noted on 01/25/2023. Hardware appears intact. Alignment is stable. There appears to be some demineralization particularly along the lateral aspect of the knee adjacent to the prosthesis, possibly accentuated by differences in technique. Moderate narrowing of the medial compartment of the right knee.
== END 2023-07-25 08:54 | disposition home or self-care (01) ==
LOC: HO.HOSX 08:53
PROVIDERS: Visit Provider Physician Assistant
DX: Z47.1 Aftercare following joint replacement surgery (principal); Z96.652 Presence of left artificial knee joint
CPT/HCPCS: 73562; 99212

== ENCOUNTER 2023-07-25 10:09 | Outpatient (AMB) | payer OTHER, SELFPAY ==
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
== END 2023-07-25 10:39 | disposition home or self-care (01) ==
PROVIDERS: PCP Internal Medicine; Visit Provider Physician Assistant
DX: Z47.89 Encounter for other orthopedic aftercare (principal); Z96.652 Presence of left artificial knee joint
CPT/HCPCS: 99213

== ENCOUNTER 2023-08-04 10:00 | Outpatient (RCR) | payer OTHER, SELFPAY ==
--- NOTE | 2023-06-17 11:46 | MHC.PT.EP ---
[facility] [place] [facility] [place] Office [place] Office [address]ia Hay[address] [phone] F: [phone] F: [phone] F: [phone] F: [phone] Physical Therapy Plan of Care Date of Evaluation: 06/17/23 Date of Surgery: 01/25/2023 Diagnosis: s/p L TKA 01/2023 Assessment: Patient is a 53 year old female presenting to PT s/p L TKA 01/25/2023 with a new fall a couple weeks ago resulting in increased pain. She presents today with impairments in pain, ROM, knee strength, hip strength, gait mechanics, swelling. 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 Pt expresses chcf goal of return to PLOF, and is motivated to work towards this in PT. Clinical presentation today is most consistent with signs and sx associated with s/p L TKA 01/25/2023 and pt will benefit from skilled PT 2 week x 4 weeks to address the following problems and impairments noted upon evaluation: pain, ROM, knee strength, hip strength, gait mechanics, swelling. These problems limit the patient with the following functional activities: ambulating, stair negotiation, ADLs, work. The prescribed treatment plan of care is medically necessary. Co-morbidities of PTSD, HTN were identified and taken into considerations of plan of care. Pt was educated on HEP, role of PT, prognosis, POC. Frequency and Duration: The patient will be seen 2 x week x 4 weeks Short Term Goals: Pt will demonstrate improved L knee ROM by 30 degrees in 2 weeks. Pt will report pain at rest to <4/10 in 2 weeks. Pt will demonstrate hip MMT strength of at least 4-/5 in 2 weeks for improved functional mobility. Pt will demonstrate improved L knee MMT strength of 5/5 in 2 weeks. [facility] Goals: Pt will demonstrate improved LEFI score by 9 points in 4 weeks for improved functional mobility. Pt will demonstrate ability to ambulate with normal mechanics and min to no pain in 4 weeks for return to PLOF. Pt will demonstrate ability to negotiate stairs with min to no pain in 4 weeks for improved access to work. Treatment Plan: Modalities to reduce pain, spasms and effusion. Manual therapy to restore motion and function. Therapeutic exercise to improve strength and flexibility. Neuromuscular re-education for posture and balance. Therapeutic activities to return to functional activities of daily living. Electronically signed by: Jennifer Bear, PT, DPT, ATC Please sign and return to therapist. Thank you for your referral.
--- NOTE | 2023-08-11 10:35 | MHC.PT.DC ---
[facility] [place] Office [place] Office [place] Office [address] [phone] F: [phone] F: [phone] F: [phone] F: [phone] Physical Therapy Discharge Report Diagnosis: s/p L TKA 01/2023 Date of Surgery: 01/25/2023 Date of Evaluation: 06/17/23 Date of Discharge: 08/11/23 Treatments to Date: 10 Cancellations to Date: 5 No Shows to Date: 2 Discharge Status: Visit Non-compliance Discharge Summary: Pt no showed her last scheduled appointment which was her second no show since start of care. She also has cancelled multiple appointments since start of care. Pt to be d/c per the attendance policy. Electronically signed by: Jenniefr Bear, PT, DPT, ATC Please sign and return to therapist. Thank you for your referral.
== END 2023-08-11 10:36 | disposition home or self-care (01) ==
LOC: HO.PTCHIC 10:00
PROVIDERS: PCP Internal Medicine; Visit Provider Physician Assistant
DX: Z96.652 Presence of left artificial knee joint (principal)
CPT/HCPCS: 97110; 97116; 97140; 97162

== ENCOUNTER 2023-10-21 12:13 | Outpatient (AMB) | payer OTHER, SELFPAY ==
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
[2023-10-21 12:16] VITALS: BMI 32.3
== END 2023-10-21 12:48 | disposition home or self-care (01) ==
PROVIDERS: PCP Internal Medicine; Visit Provider Orthopaedic Surgery
DX: Z47.1 Aftercare following joint replacement surgery (principal); Z96.652 Presence of left artificial knee joint
CPT/HCPCS: 99213

== ENCOUNTER → 2023-10-21 12:13 | Outpatient (BNVA) | payer OTHER, SELFPAY | PROVIDERS: PCP Internal Medicine; Visit Provider Orthopaedic Surgery | DX: Z96.652 Presence of left artificial knee joint (principal) | CPT/HCPCS: 99212 ==